=== PATIENT | female | born 1970 | race Caucasian/White ===

== ENCOUNTER 2017-04-27 01:59 | Emergency (ER) | payer OTHER ==
[2017-04-27 02:43] VITALS: BP 119/65; PULSE 75; TEMP 97.6; BMI 25.7
--- NOTE | 2017-04-27 03:08 | PDOC ---
History of Present Illness - General Chief Complaint: Wound Infection Stated Complaint: BREAST PAIN Time Seen by Provider: 04/27/17 02:19 History Source: Patient - History of Present Illness Initial Comments: 04/27/17 02:58 46 year old female with right breast redness and pain with previously drained pustule. history of breast abscess which has resolved with antibiotics 2weeks Past History - Past Medical History Allergies/Adverse Reactions: Allergies Allergy/AdvReac Type Severity Reaction Status Date / Time No Known Allergies Allergy Verified 04/27/17 02:24 Home Medications: Ambulatory Orders Cephalexin Monohydrate [Keflex -] 500 mg PO Q8H #30 capsule 04/27/17 Other medical history: breast abscess - Surgical History Appendectomy: Yes - Immunization History Td Vaccination: No - Psycho/Social/Smoking Cessation Hx Suicidal Ideation: No Smoking Status: No Smoking History: Never smoked Number of Cigarettes Smoked Daily: 0 Review of Systems - Review of Systems Able to Perform ROS?: Yes Is the patient limited Lebanese proficient: No *Physical Exam - Vital Signs Last Vital Signs Temp Pulse Resp BP Pulse Ox 97.6 F 75 16 119/65 100 04/27/17 02:22 04/27/17 02:22 04/27/17 02:22 04/27/17 02:22 04/27/17 02:22 *DC/Admit/Observation/Transfer Diagnosis at time of Disposition: Breast infection - Discharge Dispostion Disposition: HOME - Prescriptions Prescriptions: Cephalexin Monohydrate [Keflex -] 500 mg PO Q8H #30 capsule - Referrals Referrals: STAFF,NOT ON [Primary Care Provider] - Papa Ribeiro [Staff Physician] - - Patient Instructions Printed Discharge Instructions: DI for Wound Infection Additional Instructions: continue cephalexin as prescribed, follow up with your doctor as soon as possible.
== END 2017-04-27 03:23 | disposition home or self-care (01) ==
LOC: JER 01:59
DX: N61.0 Mastitis without abscess (principal)
CPT/HCPCS: 99281-25

== ENCOUNTER 2024-02-09 18:55 | Emergency (ER) | payer OTHER ==
[2024-02-09 19:03] VITALS: BP 113/77; PULSE 85; RESP 17; TEMP 97.8; BMI 23.0
[2024-02-09] MEDS ORDERED: KETOROLAC TROMETHAMINE 30 MG/1 ML VIAL ONE (19:52)
[2024-02-09] MEDS ORDERED: ACETAMINOPHEN 500 MG TABLET (FP) ONE (19:52)
[2024-02-09] MEDS ORDERED: LIDOCAINE 4% PATCH TP ONE (19:52)
[2024-02-09] MEDS: LIDOCAINE 4% PATCH TP ONE (19:57)
[2024-02-09] MEDS: KETOROLAC TROMETHAMINE 30 MG/1 ML VIAL IM ONE (19:57)
[2024-02-09] MEDS: ACETAMINOPHEN 500 MG TABLET (FP) PO ONE (19:57)
[2024-02-09] MEDS ORDERED: LIDOCAINE PATCH REMOVAL MC SCH (22:00)
== END 2024-02-09 20:57 | disposition home or self-care (01) ==
LOC: JERFT 18:55
PROC: 3E0233Z Introduction of Anti-inflammatory into Muscle, Percutaneous Approach (ICD-10-PCS; principal; 2024-02-09)
DX: M54.6 Pain in thoracic spine (principal)
CPT/HCPCS: 71046-TC-FY; 99284-25

== ENCOUNTER 2024-10-03 20:06 | Emergency (ER) | payer OTHER ==
[2024-10-03 20:30] VITALS: RESP 18; BMI 23.0
[2024-10-03] MEDS: ACETAMINOPHEN 1000 MG/100 ML BAG IVPB ONE (21:55)
[2024-10-03 22:00] LABS: HEMATOCRIT 36.1 % (32.4-45.2); HEMOGLOBIN 12.1 GM/dL (10.7-15.3); MCHC 33.4 g/dl (32.0-36.0); MEAN CELL VOLUME 89.8 fl (80-96); MEAN PLT VOLUME 7.8 fl (7.5-11.1); PLATELET COUNT 274 10^3/uL (134-434); RBC 4.02 M/mm3 (3.60-5.2); RDW 12.4 % (11.6-15.6); WHITE BLOOD COUNT 6.7 K/mm3 (4.0-10.0)
[2024-10-03 22:07] LABS: INR 0.94 (0.83-1.09); PROTHROMBIN TIME (PATIENT) 10.8 SEC (9.7-13.0)
[2024-10-03] MEDS ORDERED: ACETAMINOPHEN INJECTION 100 ML ONE (22:07)
[2024-10-03 22:09] LABS: ACTIVATED PTT 32.6 SECONDS (25.2-36.5)
[2024-10-03 22:36] LABS: POTASSIUM 3.8 mmol/L (3.5-5.1)
[2024-10-03 22:38] LABS: ALBUMIN 3.8 g/dl (3.4-5.0); BLOOD UREA NITROGEN 10.4 mg/dL (7-18); CALCIUM 9.3 mg/dL (8.5-10.1)
[2024-10-03 22:42] LABS: CREATININE 0.6 mg/dL (0.55-1.3)
[2024-10-03 22:43] LABS: BILIRUBIN,TOTAL 0.3 mg/dL (0.2-1); TOT PROT 7.2 g/dl (6.4-8.2)
[2024-10-03 23:35] LABS: ANISOCYTOSIS 0; HELMET CELLS 0; HOWELL-JOLLY BODIES 0; MACROCYTOSIS 0; OVALOCYTE 0; ROULEAU 0; SICKELED CELLS 0; TARGET CELLS 0; TEAR DROP CELLS 0; TOXIC GRANULATION 0
[2024-10-04 03:37] VITALS: BP 128/88; PULSE 78; TEMP 98.6
== END 2024-10-04 03:36 | disposition home or self-care (01) ==
LOC: JER 20:06
PROC: 3E033NZ Introduction of Analgesics, Hypnotics, Sedatives into Peripheral Vein, Percutaneous Approach (ICD-10-PCS; principal; 2024-10-03)
DX: N63.20 Unspecified lump in the left breast, unspecified quadrant (principal); R21 Rash and other nonspecific skin eruption
CPT/HCPCS: 36415; 70450-TC; 71046-TC-FY; 76604; 80053; 85025; 85610; 85730; 99285-25; J0131